=== PATIENT | female | born 2000 | race Caucasian/White ===

== ENCOUNTER 2022-05-05 11:15 | Outpatient (CLI) | payer OTHER | END 2022-05-05 11:16 | disposition home or self-care (01) | LOC: CSHULT 11:15 | PROVIDERS: ATTEND Internal Medicine Endocrinology, Diabetes & Metabolism | DX: E06.3 Autoimmune thyroiditis (principal); E01.0 Iodine-deficiency related diffuse (endemic) goiter; R59.0 Localized enlarged lymph nodes | CPT/HCPCS: 76536 ==